=== PATIENT | female | born 1995 | race Caucasian/White ===

== ENCOUNTER → 2019-09-30 | Outpatient (CLI) | payer MEDICAID ==
[~2019-09-30] MED LIST: MOTRIN 800800 MG/TAB PO; PRENATAL; WELLBUTRIN XL150 MG PO
== END ==
LOC: DIA.ED
DX: O24.419 Gestational diabetes mellitus in pregnancy, unspecified control (principal)
CPT/HCPCS: G0108

== ENCOUNTER → 2019-10-07 | Outpatient (CLI) | payer MEDICAID | LOC: DIA.ED | DX: O24.419 Gestational diabetes mellitus in pregnancy, unspecified control (principal) | CPT/HCPCS: G0108 ==

== ENCOUNTER → 2019-10-30 | Outpatient (CLI) | payer MEDICAID | LOC: DIA.ED | DX: O24.419 Gestational diabetes mellitus in pregnancy, unspecified control (principal) | CPT/HCPCS: G0108 ==

== ENCOUNTER 2019-11-10 15:58 | Inpatient (IN) | payer MEDICAID ==
[2019-11-10] VITALS (21 sets, daily range): BP systolic 97–138; BP diastolic 53–93; PULSE 69–114; TEMP 98.1–98.3
[~2019-11-10] VITALS: Ht 165.1 cm; Wt 82.7 kg
--- NOTE | 2019-11-10 15:15 | NUR ---
1515-G5L3 38.4WEEK Pt ambulatory to LR 4 with complaint of possible SROM at 1400 and Contraactions since 1300. Reports good FM and lolita vaginal bleeding. Reports GDM diet controlled. Assisted into bed and placed on EFM. VSS, see flow record. SVE by Joy Young,RN , Amnitest neg. 1530-Assessment complete by this RN, patient reports "feeling a trickle now" Amnitest for a second time and inconclusive result. Updated on plan of care. 1545-Dr. Hewitt to room and discussed plan of care and preforms bedside sono, vertex presentation confirmed. 1609-Patient up to BB. 161-SVE by Robel,REMA no change. Dr. Hewitt updated. Orders to allow patient to ambulate and recheck in one hour. Patient may go ahead and be admitted.
[~2019-11-10 15:58] MED LIST changes: -MOTRIN 800800 MG/TAB PO
--- NOTE | 2019-11-10 16:25 | NUR ---
1625-Patient off EFM. Ambulates in halls. 1721-Patient back on EFM. IV to Left hand by this RN, blood colleced and sent to lab per orders and protocol. SVE /2. Dr. Hewitt updated see MD notification. 173-Donovan notified of patients request for epidural. 175-Donovan in room sitting up for epidural. 1800-SS administered by Donovan,CHARGING CAR OPERATOR 1814-Reported off to REMA Griffin.
[2019-11-10 17:37] LABS: BASO % 0.3 % (0.0-2.0); EOS % 0.2 % (0-4.0); GRAN # 11.4 (1.4-6.5); GRAN % 79.2 % (42.2-75.2); HEMOGLOBIN 11.1 g/dl (12.5-16.0); LYMPH % 14.1 % (20.0-51.0); MEAN CELL VOLUME 88 fl (80.0-100.0); MEAN CORPUSCULAR HEMOGLOBIN 30 pg (27.0-31.0); MEAN CORPUSCULAR HGB CONC 35 g/dl (33.0-37.0); MEAN PLATELET VOLUME 10.7 fl (7.4-10.4); MONO # 0.8 (0.1-0.6); MONO % 5.6 % (1.7-9.3); PLATELET COUNT 245 K/mm3 (130-400); RED BLOOD COUNT 3.68 M/mm3 (4.10-5.30); REDCELL DISTRIBUTION WIDTH-CV 14.6 % (11.5-14.5)
[2019-11-10 17:40] LABS: HEMATOCRIT 32.2 % (37.0-47.0)
[2019-11-10] MEDS ORDERED: MOTRIN 800800 MG/TAB PO (19:51)
--- NOTE | 2019-11-10 20:30 | NUR ---
ACCUCHECK 88
--- NOTE | 2019-11-10 21:16 | NUR ---
PEANUT BALL RT SIDE
--- NOTE | 2019-11-10 22:30 | NUR ---
DR REGAN HERE- DUE TO DEEPENING VARIABLE DECELS. PT 9 CM STRETCHY CERVIX. PUSHES EFFECTIVELY WITH NEXT CTX.FISH SCRUB 2236 FEMALE- TO MOTHERS ABDOMEN
[2019-11-11 00:29] VITALS: BP 133/63; PULSE 102
[2019-11-11 00:45] VITALS: BP 130/75; PULSE 96; TEMP 98.5
--- NOTE | 2019-11-11 00:45 | NUR ---
0045 IV TO INT. EPID CATH REMOVED. 0100 UP TO BR AND VOIDED UNMEASURED AMOUNT. PERICARE DONE. TO 214 PER W/C AND ROSEMARY WELL.
[2019-11-11 02:15] VITALS: BP 111/64; PULSE 90
[2019-11-11 07:43] VITALS: BP 120/60; PULSE 87; TEMP 97.5
[2019-11-11 17:04] VITALS: BP 105/59; PULSE 92; TEMP 98.5
[2019-11-11 22:40] VITALS: BP 125/77; PULSE 83; TEMP 98.8
[2019-11-12 08:13] VITALS: BP 125/71; PULSE 82; TEMP 98.2
== END 2019-11-12 13:31 | disposition home or self-care (01) | DRG 807 ==
LOC: LDR 15:58 → LDRO 15:58 → OB 16:52 → LDR 16:52 → OB 11-11 01:00
PROVIDERS: Obstetrics & Gynecology; ADMIT Obstetrics & Gynecology
PROC: 10E0XZZ Delivery of Products of Conception, External Approach (ICD-10-PCS; principal; 2019-11-10)
PROC: 10907ZC Drainage of Amniotic Fluid, Therapeutic from Products of Conception, Via Natural or Artificial Opening (ICD-10-PCS; 2019-11-10)
DX: O24.420 Gestational diabetes mellitus in childbirth, diet controlled (principal); Z37.0 Single live birth; O99.344 Other mental disorders complicating childbirth; F32.9 Major depressive disorder, single episode, unspecified; O99.02 Anemia complicating childbirth; D64.9 Anemia, unspecified; Z3A.38 38 weeks gestation of pregnancy; F41.9 Anxiety disorder, unspecified; O26.893 Other specified pregnancy related conditions, third trimester; O76 Abnormality in fetal heart rate and rhythm complicating labor and delivery; Z67.11 Type A blood, Rh negative
CPT/HCPCS: J2590; J2791; J2795; J7120

== ENCOUNTER 2020-12-06 00:27 | Emergency (ER) | payer MEDICAID ==
[~2020-12-06] VITALS: Ht 162.6 cm; Wt 65.9 kg
[~2020-12-06 00:27] MED LIST changes: +MOTRIN 800800 MG/TAB PO
[2020-12-06 00:47] VITALS: TEMP 98.7
[2020-12-06 01:23] LABS: BASO # 0.1 (0.0-0.2); BASO % 0.6 % (0.0-2.0); EOS # 0.1 (0.0-0.7); EOS % 0.9 % (0-4.0); GRAN # 7.3 (1.4-6.5); GRAN % 67.5 % (42.2-75.2); HEMOGLOBIN 12.9 g/dl (12.5-16.0); LYMPH # 2.8 (1.2-3.4); LYMPH % 25.7 % (20.0-51.0); MEAN CELL VOLUME 91 fl (80.0-100.0); MEAN CORPUSCULAR HEMOGLOBIN 32 pg (27.0-31.0); MEAN CORPUSCULAR HGB CONC 35 g/dl (33.0-37.0); MEAN PLATELET VOLUME 10.5 fl (7.4-10.4); MONO # 0.5 (0.1-0.6); PLATELET COUNT 280 K/mm3 (130-400); RED BLOOD COUNT 4.03 M/mm3 (4.10-5.30); REDCELL DISTRIBUTION WIDTH-CV 13.2 % (11.5-14.5)
[2020-12-06 01:28] LABS: HEMATOCRIT 36.6 % (37.0-47.0)
[2020-12-06 01:34] LABS: ALANINE AMINOTRANSFERASE 15 U/L (4-34); ALBUMIN 4.5 gm/dL (3.5-5.0); ALKALINE PHOSPHATASE 45 U/L (50-136); ANION GAP 6 mmol/L (7-16); AST,SGOT 19 U/L (15-37); BLOOD UREA NITROGEN 16 mg/dL (7-17); CALCIUM 9.3 mg/dL (8.4-10.2); CARBON DIOXIDE 24 mmol/L (22-30); CHLORIDE 109 mmol/L (98-107); CREATININE, serum 0.76 (0.52-1.25); GLUCOSE 99 mg/dL (74-106); POTASSIUM 3.8 mmol/L (3.4-5.0); SODIUM 139 mmol/L (137-145); TOTAL PROTEIN 7.4 gm/dL (6.4-8.2)
[2020-12-06 01:46] LABS: TROPONIN-I < 0.012 ng/mL (0.000-0.035)
[2020-12-06 02:31] VITALS: BP 143/93; PULSE 78
== END 2020-12-06 02:31 | disposition home or self-care (01) ==
LOC: COL.ER 00:27
PROVIDERS: Emergency Medicine
DX: R07.81 Pleurodynia (principal)
CPT/HCPCS: J1885

== ENCOUNTER 2021-11-03 22:33 | Emergency (ER) | payer MEDICAID ==
[~2021-11-03] VITALS: Ht 162.6 cm; Wt 68.2 kg
[2021-11-03 22:38] VITALS: TEMP 98
[2021-11-03 23:09] LABS: COLLECTION METHOD CLEAN CATCH
[2021-11-03 23:14] LABS: MUCOUS Present (NOT PRESENT); PH 6 (5-8); URINE APPEARANCE Clear (CLEAR/HAZY); URINE BACTERIA None Seen /hpf (NONE SEEN); URINE BILIRUBIN Negative (NEGATIVE); URINE BLOOD Negative (NEGATIVE); URINE COLOR Straw (YELLOW); URINE GLUCOSE Negative (NEGATIVE); URINE KETONE Negative (NEGATIVE); URINE LEUKOCYTE ESTERASE Negative (NEGATIVE); URINE NITRATE Negative (NEGATIVE); URINE PROTEIN(semi-quant) Negative (NEGATIVE); URINE RBC 0-2 /hpf (0-2); URINE UROBILINOGEN Negative (NEGATIVE)
[2021-11-03 23:22] LABS: TRICYCLIC ANTIDEPRESS URINE NEGATIVE
[2021-11-03 23:23] LABS: BASO # 0.1 K/mm3 (0.0-0.2); BASO % 0.7 % (0.0-2.0); EOS # 0.1 K/mm3 (0.0-0.7); EOS % 0.7 % (0.0-4.0); GRAN # 4.5 K/mm3 (1.4-6.5); HEMOGLOBIN 12.1 g/dl (12.5-16.0); LYMPH # 1.9 K/mm3 (1.2-3.4); LYMPH % 27.4 % (20.0-51.0); MEAN CELL VOLUME 90 fl (80.0-100.0); MEAN CORPUSCULAR HEMOGLOBIN 32 pg (27-31); MEAN CORPUSCULAR HGB CONC 36 g/dl (33.0-37.0); MEAN PLATELET VOLUME 9.8 fl (7.4-10.4); MONO # 0.3 K/mm3 (0.1-0.6); MONO % 4.9 % (1.7-9.3); PLATELET COUNT 305 K/mm3 (130-400); RED BLOOD COUNT 3.75 M/mm3 (4.10-5.30); REDCELL DISTRIBUTION WIDTH-CV 13.3 % (11.5-14.5)
[2021-11-03 23:25] LABS: HEMATOCRIT 33.8 % (37.0-47.0)
[2021-11-03 23:37] LABS: ALANINE AMINOTRANSFERASE 12 U/L (0-55); ALBUMIN 4.1 gm/dL (3.5-5.0); ALCOHOL(ethanol),MEDICAL 30 mg/dL (0-10); ALKALINE PHOSPHATASE 42 U/L (40-150); ANION GAP 12 mmol/L (7-16); AST,SGOT 12 U/L (5-34); BLOOD UREA NITROGEN 10 mg/dL (7-19); CALCIUM 8.8 mg/dL (8.4-10.2); CARBON DIOXIDE 19 mmol/L (22-29); CHLORIDE 111 mmol/L (98-107); CREATININE, serum 0.64 mg/dL (0.57-1.11); GLUCOSE 86 mg/dL (70-99); POTASSIUM 3.8 mmol/L (3.5-4.5); SODIUM 142 mmol/L (136-145); TOTAL PROTEIN 6.8 gm/dL (6.2-8.1)
[2021-11-03 23:38] LABS: ACETAMINOPHEN < 1.0 ug/mL (10-30); SALICYLATE < 5.0 mg/dL (15.0-30.0)
[2021-11-04 01:10] VITALS: BP 140/78; PULSE 76
== END 2021-11-04 01:10 | disposition home or self-care (01) ==
LOC: COL.ER 22:33
PROVIDERS: Nurse Practitioner
DX: F32.A Depression, unspecified (principal); R45.851 Suicidal ideations